=== PATIENT | female | born 1980 | race Two or more races ===

== ENCOUNTER 2019-02-16 19:09 | Emergency (ER) | payer MEDICAID ==
[~2019-02-16] VITALS: Ht 160 cm; Wt 46.3 kg
[2019-02-16 19:24] VITALS: BP 146/77
--- NOTE | 2019-02-16 19:24 | NUR ---
ED Nurse Note: Walk-in patient recently seen at nearby hospital for abdominal pain with full work up. Patient has complaints today of epigastric pain. She has brought in records from previous visit. Will service orders when rendered.
--- NOTE | 2019-02-16 19:37 | NUR ---
ED Nurse Note: Patient is currently providing a urine sample.
[2019-02-16] MEDS ORDERED: Mylanta II UD 30ml ORAL ONE (19:45)
[2019-02-16] MEDS ORDERED: Lidocaine 2% Visc 15ml soln ORAL ONE (19:45)
--- NOTE | 2019-02-16 19:46 | NUR ---
ED Nurse Note: Urine sample provided and sent down to lab. Patient tolerated medication administration well. Will continue to monitor.
--- NOTE | 2019-02-16 19:56 | Emergency Room Report ---
History of Present Illness General Chief Complaint: Abdominal Pain Source: Patient Present Illness HPI 38-year-old female presents to the emergency department complaining of 7 out of 10 severity mid epigastric abdominal pain acute onset earlier today. Patient reports she had some relief after taking pantoprazole. Patient states she was recently evaluated 3 days ago at [facility] for diarrhea and abdominal pain and she is currently taking antibiotics, naproxen, and antispasmodic. Patient denies fevers or chills she denies recent travel. Denies history of acid reflux denies nausea or vomiting. Denies suspicion of . Denies radiation of pain. Pt. is unable to note any aggravating or relieving factors. Denies blood in the stool or black tarry stool. Pt reports her diarrhea is improving. Allergies: Coded Allergies: No Known Allergies (Unverified , 02/16/19) Patient History Past Medical History: see triage record Past Surgical History: none Pertinent Family History: none Last Menstrual Period: 02/11/19 Now: No Reviewed Nursing Documentation: PMH: Agreed; PSxH: Agreed Nursing Documentation-PMH Past Medical History: No Stated History Review of Systems All Other Systems: negative except mentioned in HPI Physical Exam Vital Signs Date Time Temp Pulse Resp B/P (MAP) Pulse Ox O2 Delivery O2 Flow Rate FiO2 02/16/19 19:14 98.2 53 18 146/77 (100) 97 Sp02 EP Interpretation: reviewed, normal General Appearance: alert, GCS 15, non-toxic, mild distress Head: normocephalic, atraumatic Eyes: bilateral eye normal inspection, bilateral eye PERRL ENT: hearing grossly normal, normal voice Neck: full range of motion Respiratory: chest non-tender, lungs clear, normal breath sounds, speaking full sentences Cardiovascular #1: regular rate, rhythm Gastrointestinal: normal bowel sounds, soft, no peritonitis, non-distended, no guarding, tenderness - mid epigastric area, no RLQ, LLQ or RUQ TTP. Rectal: deferred Genitourinary: normal inspection, no CVA tenderness Musculoskeletal: gait/station normal, normal range of motion Neurologic: alert, oriented x3, responsive, motor strength/tone normal, sensory intact, normal gait, speech normal, grossly normal Psychiatric: judgement/insight normal Skin: warm/dry, well hydrated Lymphatic: no adenopathy Medical Decision Making PA Attestation Dr. Guerrero is my supervising Physician whom patient management has been discussed with. Diagnostic Impression: Primary Impression: Abdominal pain Qualified Codes: R10.13 - Epigastric pain Additional Impression: Acute gastritis Qualified Codes: K29.00 - Acute gastritis without bleeding ER Course 38-year-old female presents to the emergency department complaining of 7 out of 10 severity mid epigastric abdominal pain acute onset earlier today. Patient reports she had some relief after taking pantoprazole. Patient states she was recently evaluated 3 days ago at [facility] for diarrhea and abdominal pain and she is currently taking antibiotics, naproxen, and antispasmodic. Patient denies fevers or chills she denies recent travel. Denies history of acid reflux denies nausea or vomiting. Denies suspicion of . Denies radiation of pain. Pt. is unable to note any aggravating or relieving factors. Denies blood in the stool or black tarry stool. Pt reports her diarrhea is improving. Ddx considered but are not limited to GE, colitis, acute appy, SBO, H.pylori, Gastritis, PNA, pericarditis, just to name a few. Vital signs: pt. is afebrile, H&PE are most consistent with Gastritis - no evidence to suggest acute abdomen on physical exam. Non-toxic in appearance. -Reviewed laboratory and imaging results from ED visit at [facility] on the ( 2 days ago) I do not feel repeat blood work would provide significant benefit at this time. ORDERS: -Urine Hcg: Negative ED INTERVENTIONS: -Mylanta PO -Lidocaine PO -Pepcid PO PT. had full resolution of her pain upon re-assessment. Given this response I feel gastritis or gastric ulcer is most likely cause of her symptoms. Pt. has appt. already scheduled with her doctor for tomorrow. -I do not identify an emergent condition at this time. With current presentation , pt. is stable for close outpatient follow up and conservative treatment. D/ w pt. to return promptly to ED with worsening or new symptoms.- Pt. (and or responsible republican) verbalizes' understanding and agreement with proposed treatment plan.proposed treatment plan. DISCHARGE: At this time pt. is stable for d/c to home. Will provide printed patient care instructions, and any necessary prescriptions. Care plan and follow up instructions have been discussed with the patient prior to discharge. Labs Test 02/16/19 19:40 Urine HCG, Qualitative Negative (NEGATIVE) Last Vital Signs Date Time Temp Pulse Resp B/P (MAP) Pulse Ox O2 Delivery O2 Flow Rate FiO2 02/16/19 19:14 98.2 53 18 146/77 (100) 97 Disposition: HOME, SELF-CARE Condition: Stable Scripts Ranitidine Hcl* (ZANTAC*) 150 Mg Tablet 150 MG ORAL TWICE A DAY for 10 Days, #20 TAB Prov: Shannon Chadwick 02/16/19 Lidocaine HCl 2% Viscous (Lidocaine HCl 2% Viscous) 100 Ml Solution 10 ML ORAL QID, #220 ML Prov: Shannon Chadwick 02/16/19 [address]errals: [facility] Anthony Agrawal Comp. [facility] + [facility] Patient Instructions: Abdominal Pain, Adult, Gastritis, Adult Additional Instructions: Take medications as directed. Follow up with a Primary Care Provider in 3-5 days, even if your symptoms have resolved. --Please review list of primary care clinics, if you do not already have a primary care provider Return sooner to ED if new symptoms occur, or current symptoms become worse. - Please note that this Emergency Department Report was dictated using [email or web address] agent technology software, occasionally this can lead to erroneous entry secondary to interpretation by the dictation equipment. Shannon Chadwick Feb 16, 2019 19:55
[2019-02-16] MEDS ORDERED: ZANTAC150 MG ORAL (20:23)
[2019-02-16] MEDS ORDERED: LIDOCAINE VISC100 ML ORAL (20:23)
[2019-02-16 20:38] VITALS: BP 146/77
--- NOTE | 2019-02-16 20:38 | NUR ---
ED Nurse Note: CLEARED FOR DISCHARGE, VERBALIZED UNDERSTANDING OF DISCHARGE INSTRUCTIONS, ID BAND REMOVED. PATIENT DEPARTED WITH ALL BELONGINGS.
== END 2019-02-16 20:39 | disposition home or self-care (01) ==
LOC: EMR 19:45
DX: K29.70 Gastritis, unspecified, without bleeding (principal)
CPT/HCPCS: 81025; 99283